=== PATIENT | male | born 1975 | race Caucasian/White ===

== ENCOUNTER 2018-05-01 10:52 | Outpatient (CLI) | payer OTHER, SELFPAY ==
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
== END 2018-05-01 11:12 ==
PROVIDERS: PCP Nurse Practitioner; Visit Provider Nurse Practitioner
DX: M25.561 Pain in right knee (principal)
CPT/HCPCS: 73562

== ENCOUNTER 2020-01-21 11:12 | Outpatient (CLI) | payer OTHER, SELFPAY ==
--- NOTE | 2020-01-21 08:00 | DI.RAD_ITS ---
EXAM: XR CLAVICLE RT CLINICAL HISTORY: right shoulder injury TECHNIQUE: 2D digital imaging was performed. COMPARISON: No exams were available for comparison FINDINGS: BONES: No acute fracture is present. No bony destructive lesion is seen. JOINTS: There is widening of the AC joint as well as widening of the coracoclavicular distance. The glenohumeral joint appears grossly intact. SOFT TISSUE: Soft tissue swelling is seen above the AC joint. IMPRESSION: Acromioclavicular joint separation. DATA REPOSITORY: RADIATION DOSE DELIVERED:
== END 2020-01-21 11:32 ==
PROVIDERS: PCP Nurse Practitioner; Visit Provider Student in an Organized Health Care Education/Training Program
DX: S49.91XA Unspecified injury of right shoulder and upper arm, initial encounter (principal); S43.101A Unspecified dislocation of right acromioclavicular joint, initial encounter
CPT/HCPCS: 73000

== ENCOUNTER 2020-02-16 07:30 | Outpatient (CLI) | payer OTHER, SELFPAY ==
[2020-02-17 21:08] LABS: COVID-19 RT-PCR Result NEGATIVE (Negative)
== END 2020-02-16 07:50 ==
PROVIDERS: PCP Nurse Practitioner; Visit Provider Nurse Practitioner Family
DX: Z11.59 Encounter for screening for other viral diseases (principal)
CPT/HCPCS: U0003

== ENCOUNTER 2020-03-02 15:21 | Outpatient (CLI) | payer OTHER, SELFPAY ==
--- NOTE | 2020-03-02 15:00 | DI.RAD_ITS ---
EXAM: XR KNEE RT 3V AP,LAT,ANNEMARIE CLINICAL HISTORY: right knee pain. TECHNIQUE: 2D digital imaging was performed. COMPARISON: No exams were available for comparison FINDINGS: BONES: No acute fracture is present. No bony destructive lesion is seen. JOINTS: The knee is normally aligned. No joint effusion is seen. SOFT TISSUE: Normal. IMPRESSION: Unremarkable radiographs of the right knee. DATA REPOSITORY: RADIATION DOSE DELIVERED:
--- NOTE | 2020-03-02 15:15 | DI.RAD_ITS ---
EXAM: XR ACROMIO CLAVICULAR JOINTS CLINICAL HISTORY: f/u TECHNIQUE: 2D digital imaging was performed. COMPARISON: CR XR CLAVICLE RT from 01/21/2020 FINDINGS: An upright non weight-bearing view was performed including both clavicles. There has been a previou s resection the distal end of the left clavicle. There is mild widening of the AC joint widening of the coracoclavicular distance on the right. IMPRESSION: Postsurgical changes of the left clavicle. Acromioclavicular joint separation on the right, unchang ed.
== END 2020-03-02 15:41 ==
PROVIDERS: PCP Nurse Practitioner; Referring Provider Nurse Practitioner; Visit Provider Student in an Organized Health Care Education/Training Program
DX: S43.101A Unspecified dislocation of right acromioclavicular joint, initial encounter (principal); Z98.890 Other specified postprocedural states; M25.561 Pain in right knee
CPT/HCPCS: 73562; 73050

== ENCOUNTER 2020-04-14 15:27 | Outpatient (CLI) | payer OTHER, SELFPAY ==
--- NOTE | 2020-04-14 14:45 | DI.RAD_ITS ---
EXAM: XR KNEE LT 3V AP,LAT,ANNEMARIE CLINICAL HISTORY: L knee injury. TECHNIQUE: 2D digital imaging was performed. COMPARISON: CR XR KNEE RT 3V AP,LAT,ANNEMARIE from 03/02/2020 FINDINGS: BONES: No acute fracture is present. No bony destructive lesion is seen. JOINTS: The knee is normally aligned. A joint effusion is seen. SOFT TISSUE: There is swelling anterior to the patella. IMPRESSION: Soft tissue swelling and joint effusion. DATA REPOSITORY: RADIATION DOSE DELIVERED:
== END 2020-04-14 15:47 ==
PROVIDERS: PCP Nurse Practitioner; Referring Provider Nurse Practitioner; Visit Provider Physician Assistant
DX: M25.462 Effusion, left knee (principal); S89.92XA Unspecified injury of left lower leg, initial encounter; M79.89 Other specified soft tissue disorders
CPT/HCPCS: 73562

== ENCOUNTER 2020-04-22 01:08 | Outpatient (CLI) | payer OTHER, SELFPAY ==
--- NOTE | 2020-04-22 06:45 | DI.MRI_ITS ---
EXAM: MR LOWER JOINT LT WO CLINICAL HISTORY: MCL ACL rupture,INTERNAL DERANGEMENT,SPRAIN,M23.92,S83.412A. TECHNIQUE: Multiplanar multisequence MRI was performed. COMPARISON: No exams were available for comparison FINDINGS: MR examination of the left knee was performed according to the usual protocol. Bones: There are large areas of marrow signal abnormality involving the lateral femoral condyle and l ateral tibial plateau. Findings are consistent with recent injury and are consistent with mechanism of injury of ACL and medial meniscal tears. Medial tibiofemoral joint: Articular cartilage appears well maintained. There is a predominantly hor izontal medial meniscal tear which is nondisplaced and which appears to surface inferiorly. There is grade 2 MCL injury. There is abnormal signal of the semimembranosus and semitendinosus and gracilis tendons distally without definite rupture or retraction. Lateral tibiofemoral joint: Unremarkable appearance of the articular cartilage. No meniscal tear or attachment tear. No significant lateral collateral ligament or posterolateral corner injury. Patellofemoral joint and extensor mechanism: There is minimally abnormal signal of the inferior pole of the patella. Articular cartilage of the patellar apex shows abnormal signal and mild surface irre gularity consistent with grade II defect. The patellar retinacula appear intact. The quadriceps and patellar tendons appear intact. No significant signal abnormality in suprapatellar or infrapatellar fat pads. Cruciate ligaments: There is a complete tear of the ACL approximately 1 cm from its femoral attachmen t. Posterior cruciate ligament appears intact. IMPRESSION: ACL tear and medial meniscal tear with associated grade 2 medial collateral ligament tear. Additional findings as described above. DATA REPOSITORY:
== END 2020-04-22 01:28 ==
PROVIDERS: PCP Nurse Practitioner; Visit Provider Student in an Organized Health Care Education/Training Program
DX: S83.32XA Tear of articular cartilage of left knee, current, initial encounter (principal); S83.242A Other tear of medial meniscus, current injury, left knee, initial encounter; M23.92 Unspecified internal derangement of left knee
CPT/HCPCS: 73721

== ENCOUNTER 2020-06-21 02:19 | Outpatient (CLI) | payer OTHER, SELFPAY ==
[2020-06-22 23:24] LABS: COVID-19 RT-PCR Result NEGATIVE (Negative)
== END 2020-06-21 02:39 ==
PROVIDERS: PCP Nurse Practitioner; Visit Provider Student in an Organized Health Care Education/Training Program
DX: Z11.59 Encounter for screening for other viral diseases (principal); Z01.818 Encounter for other preprocedural examination
CPT/HCPCS: U0003

== ENCOUNTER 2020-06-24 09:26 | Day surgery (SDC) | payer OTHER, SELFPAY ==
[2020-06-24 09:37] VITALS: BP 141/85; PULSE 57; RESP 16; TEMP 36.1; O2SAT 100
[2020-06-24] MEDS: Lactated Ringers 1,000 ML 100 ML IV (09:57)
[2020-06-24] MEDS: Acetaminophen 500 MG TAB 1000 MG PO (10:02)
[2020-06-24] MEDS: ceFAZolin 2 GM/50 ML BAG IVPB (11:16)
[2020-06-24] MEDS: Bupivacaine 0.25% Pres-Free 30 ML VIAL (12:45)
[2020-06-24] MEDS: EPINEPHrine 30 MG/30 ML VIAL (12:46)
[2020-06-24] MEDS: EPINEPHrine 1 MG/ML AMP pres-free (12:46)
--- NOTE | 2020-06-24 15:00 | DI.RAD_ITS ---
EXAM: XR KNEE LT 1V CLINICAL HISTORY: ACL TEAR. TECHNIQUE: 2D and realtime digital imaging was performed. COMPARISON: CR XR KNEE LT 3V AP,LAT,ANNEMARIE from 04/14/2020 FINDINGS: Fluoroscopy was provided for Dr. Amezquita in the OR. Please see procedure note for details. Fluoro time: 7.0 seconds RADIATION DOSE DELIVERED:
[2020-06-24 16:04] VITALS: BP 110/67; PULSE 59; RESP 12; O2SAT 99
--- NOTE | 2020-06-24 16:04 | W.PM.DSUDISC ---
Discharge Plan Disposition Patient Disposition: HOME Condition: Stable Discharge Details Reason For Visit: Left knee surgery Attending Provider: Aaron Amezquita Primary Care Provider: Shanice Stout Home Meds and New Rx's Prescriptions: New naproxen 250 mg tablet 250 - 500 mg PO BID PRN (Reason: Moderate pain or swelling) Qty: 60 RF: 0 aspirin 81 mg tablet,delayed release (DR/EC) 81 mg PO DAILY 30 Days Qty: 30 RF: 0 ondansetron 4 mg tablet,disintegrating 4 mg PO Q6H PRN (Reason: nausea or vomiting) Qty: 5 RF: 0 oxycodone 5 mg tablet 5 - 10 mg PO Q4H PRN (Reason: moderate to severe pain) Qty: 22 RF: 0 oxycodone 5 mg tablet 5 - 10 mg PO Q4H PRN (Reason: moderate to severe pain) Qty: 22 RF: 0 Discharge Instructions Additional Instructions: Surgery: Left knee ACL repair, superficial and deep MCL repair, lateral meniscus repair, and partial medial meniscectomy Activity: Weightbearing as tolerated with brace locked in full extension. Use at all times when ambulatory. May remove or loosen brace when seated or resting. Brace is locked in full extension (0 degrees). Brace will be unlocked after the first postoperative visit to allow for range of motion exercises. A physical therapy prescription will be sent electronically to start in 2 to 3 weeks. Prescriptions: Aspirin 81 mg take 1 daily to prevent a blood clot 30 days Naproxen 250 mg take 1-2 every 12 hours with a meal as needed for moderate pain Oxycodone 5 mg take 1-2 every 4-6 hours as needed for severe pain You may use ujot-gqe-iykiecd Tylenol (acetaminophen) as needed for mild pain. These pain medications may be taken all at once or in different combinations as needed. Also, recommend Colace (docusate) as a stool softener as surgery and pain medicine cause constipation. Dressings: Leave splint and dressing in place until follow-up. Keep clean and dry at all times. Follow-up: 10-[address] Amezquita Let us know right away if you develop any redness, drainage, fevers, chest pain, or trouble breathing. Do not drink alcohol or drive for at least 24 hours after anesthesia. Please call the office during business hours with any questions or concerns. Referrals: Aaron Amezquita MD [ [id number] STAFF PHYSICIAN] - Discharge Orders Discharge Orders: Discharge Order (Routine); Ordered 06/24/20 Ordered By: Aaron Amezquita DS: Diagnosis Discharge Diagnosis (1) MCL sprain of left knee: Status: Acute (2) Left ACL tear: Status: Acute (3) Acute medial meniscus tear of left knee: Status: Acute
[2020-06-24 16:09] VITALS: BP 94/56; PULSE 74; RESP 12; O2SAT 99
[2020-06-24 16:14] VITALS: BP 100/57; PULSE 59; RESP 18; TEMP 36.3; O2SAT 99
--- NOTE | 2020-06-24 16:32 | W.PM.OP ---
Date of service: 06/24/20 Time of Service: 16:04 Operative Note Operative Note DATE OF PROCEDURE: 06/24/20 PRE-OP DIAGNOSIS: Left knee 1. ACL proximal avulsion 2. Distal MCL tear 3. Superficial MCL disruption 4. Medial meniscus tear POST-OP DIAGNOSIS: same Left knee 1. ACL proximal avulsion 2. Distal MCL tear 3. Superficial MCL disruption 4. Medial meniscus tear 5. Lateral meniscus tear PROCEDURE: Left knee 1. Arthroscopic ACL repair, CPT# 26432 2. Superficial and deep MCL repair, CPT# 54789 3. Lateral meniscus repair, CPT# 48317 4. Partial medial meniscectomy, CPT# 59215 SURGEON: Aaron Amezquita ASSISTING SURGEON: Loco Mello NON LINEAR EDITOR: Lianne Sandoval ANESTHESIA: GETA, regional and local ESTIMATED BLOOD LOSS: 15 PATHOLOGY: none sent TOURNIQUET TIME: 0 COMPLICATIONS: None Patient was transported to: PACU Patient's condition: stable Implants: Arthrex 4.75 SwiveLock anchors x2 Mitek Truespan meniscal repair x3 Indications: Please see complete medical record for details. Findings: Full range of motion. Unstable Swathi and anterior drawer. Negative pivot shift. No anterior medial rotatory instability. Medial joint laxity in extension and 30 degrees of flexion gapping about 6-8 mm. Proximal ACL avulsion. Horizontal posterior horn lateral meniscus tear. Chronic horizontal posterior horn medial meniscus tear. Deep MCL avulsion from tibia. Superficial MCL retracted and scarred about pes anserinus. Procedure Description: In the operating room, general anesthesia was induced. The patient was positioned supine on the operating room table. All bony prominences were well-padded. Preoperative antibiotics were administered. The left knee was prepped and draped in the usual sterile fashion. The correct patient, procedure, and side of the procedure were all verified prior to incision. Anteromedial, anterolateral, and medial incision sites were preinjected with 0.25% bupivacaine containing epinephrine. Exam under anesthesia was performed findings documented above confirming high-grade ACL and MCL injuries. Diagnostic arthroscopy was performed establishing standard anteromedial anterolateral portals. Cartilaginous surfaces were intact patellofemoral medial lateral compartments. There were no loose bodies. ACL had a complete proximal avulsion with good quality tissue in place scarred to the PCL. Lateral meniscus posterior horn had a 16mm horizontal meniscus tear that appeared acute. Free edges were shaved off the white zone. The tear was probed and felt to progress significantly to the capsule. Shaver and rasp were introduced to improve tissue for healing. An all inside technique using the [employer] device was used to place 3 evenly spaced vertical mattress sutures spanning the horizontal tear. Each was secured and tied appropriately. The meniscus horizontal cleavage component was well fixed and stable. Next, attention was turned back to the notch where limited notchplasty was performed. Elevators were used to free the ACL remnant from the PCL. It was tested and found to have excellent excursion and reduction to the lateral wall anatomic footprint. Back in the medial compartment positive drive-through sign was confirmed of the medial meniscus body elevating off the proximal tibia. There is a degenerative appearing posterior horn horizontal medial meniscus tear with mucoid tissue and white zone fraying. Medial longitudinal approach centered over the proximal medial tibial from the joint line about 6 cm distally was used to approach the pes tendons, which were carefully retracted exposing a scarred and shorten superficial MCL tendon. It was carefully identified anteriorly and posteriorly and elevated off the proximal tibia and freed of adhesions superficially and deep using elevators. The tissue was confirmed to originate from the medial epicondyle. Suture tape was used to whipstitch this tendon in a Krak?w locking fashion. The knee was positioned in about 30 degrees of flexion with moderate varus in neutral rotation and the suture tapes were secured to a slightly posterior midline swivel lock anchor just distal to the pes. The double loaded #2 FiberWire from the suture anchor were then passed in an inverted horizontal mattress just anteriorly and posteriorly to each Krak?w edge at this horseshoe of elevated mobilized tissue achieving more fixation anteriorly posteriorly and a ripstop fashion. Valgus stress was applied to the knee confirming excellent reduction of the medial joint space gapping. Additional suture tape was used to bring tissue about the scarred site just proximal to the pes from posterior to anterior reducing any posterior medial MCL/KAELA laxity. The arthroscope was brought back into the knee and attention to the medial compartment. There was a reduced but still positive drive-through sign of the medial meniscus of the proximal tibia although medial gapping was nearly physiologic under valgus stress. The posterior horn of the medial meniscus was degenerative appearing unlike the lateral meniscus tear. A probe expose the mucoid tissue centrally but the tear fortunately only involved the white zone. Meniscal biter and shaver used to remove the unstable superior and inferior leaflet margins until well contoured stable rim. The joint line was palpated and outside in technique was used to pass a 2-0 FiberWire in a horizontal mattress fashion the superior aspect of the meniscus. This was repeated more anteriorly. A free needle was used to bring each end of the suture pairs under the superficial MCL tissue about 15 mm distal joint line and tightened and tied in pairs under visualization with the knee in full extension. There was excellent reduction in the meniscus no longer elevated off the proximal tibia under stress or probing. The remaining suture ends were then tied together completing the superficial and deep MCL repairs. Attention was then turned to the notch, and a low anteromedial accessory portal was established under direct visualization with the knee in hyperflexion targeting the anatomic footprint of the ACL. Passport cannulas were inserted in this accessory medial portal as well as anterolateral portals. The camera was brought into the original anteromedial portal. Using a suture retriever a suture tape was passed in an alternating fashion from medial to lateral each end across the ACL from the intact tibial insertion to the end of the proximal stump ending each suture tape towards the lateral wall with about 3-4 passes of each suture. Appropriate excursion and reduction in traction on the ACL was confirmed. The suture tapes were brought out the low anteromedial portal. A punch was used to establish site for the suture anchor which was provisionally placed with appropriate suture tension. When the suture anchor was brought down, the ACL tissue did not quite reach this location. The camera was brought anteromedial anterior laterally and this punch location was felt to be too high in the notch. The anchor was removed in entirety. The punch was then redirected to a more anatomic location lower and centrally. Suture anchor was loaded again, the tissue appropriately tensioned, and secured to the lateral footprint. The repair was inspected under direct visualization and felt to well approximate the majority of the ACL tissue although somewhat low well-positioned between the posterior lateral anterolateral bundle footprint on the femur. The probe was used to confirm secure ACL tissue against the lateral wall with no separation. The knee was examined anterior drawer Swathi felt to be excellently stable. In full extension there was no impinge on the notch. The free suture was removed and the repair stitch was cut flush. The lateral meniscus repair was examined one more time remained very stable and secure. The knee was drained of arthroscopic fluid. The open wound was copiously irrigated with normal saline. The portals were closed using 3-0 Monocryl in a buried interrupted fashion. The sartorius fascia was closed with 0 Vicryl in a eufajp-bj-wmaos fashion. Subcutaneous tissues closed using 2-0 Monocryl in a buried interrupted fashion. The skin was closed in 3-0 Monocryl in a running subcuticular fashion. Mastisol applied about the incision and portals, which were covered with Steri-Strips, Xeroform, and dry 4 x 4 gauze and ABD pads. Sterile soft roll was applied about the knee followed by an Rod wrap from the foot up to the thigh. The knee was then placed in a hinged knee brace fit for the patient and locked in full extension. The patient awoke from anesthesia without complication and was transferred to the recovery room in a stable condition.
[2020-06-24 16:55] VITALS: BP 120/75; PULSE 59; RESP 16; TEMP 36.3; O2SAT 98
== END 2020-06-24 17:30 | disposition home or self-care (01) ==
PROVIDERS: PCP Nurse Practitioner; Visit Provider Student in an Organized Health Care Education/Training Program
PROC: (CPT 29888; principal; 2020-06-24 11:00)
DX: S83.412A Sprain of medial collateral ligament of left knee, initial encounter (principal); S83.512A Sprain of anterior cruciate ligament of left knee, initial encounter; S83.242A Other tear of medial meniscus, current injury, left knee, initial encounter; S83.282A Other tear of lateral meniscus, current injury, left knee, initial encounter; G89.18 Other acute postprocedural pain; V17.0XXA Pedal cycle driver injured in collision with fixed or stationary object in nontraffic accident, initial encounter; Y93.55 Activity, bike riding
CPT/HCPCS: 29888; 27405; 29882; 29881; C1713; 76942; 73560; E0114; J0171; J0690; J1100; J1885; J2001; J2250; J2405; J2704; J3475; L8699

== ENCOUNTER 2020-09-30 09:38 | Outpatient (CLI) | payer OTHER, SELFPAY ==
[2020-10-01 01:54] LABS: COVID-19 RT-PCR UVMMC Result Negative (Negative)
== END 2020-09-30 09:39 | disposition home or self-care (01) ==
PROVIDERS: PCP Nurse Practitioner; Visit Provider Nurse Practitioner Family
DX: Z20.822 Contact with and (suspected) exposure to COVID-19 (principal)
CPT/HCPCS: U0003

== ENCOUNTER 2021-03-09 02:28 | Outpatient (CLI) | payer OTHER, SELFPAY ==
[2021-03-09 19:55] LABS: COVID-19 RT-PCR UVMMC Result Negative (Negative)
== END 2021-03-09 02:29 | disposition home or self-care (01) ==
LOC: LBO 02:29
PROVIDERS: PCP Nurse Practitioner; Visit Provider Nurse Practitioner Family
DX: Z20.822 Contact with and (suspected) exposure to COVID-19 (principal)
CPT/HCPCS: U0003

== ENCOUNTER 2021-07-26 07:34 | Outpatient (CLI) | payer OTHER, SELFPAY | END 2021-07-26 07:35 | disposition home or self-care (01) | LOC: LBO 07:35 | PROVIDERS: PCP Nurse Practitioner; Visit Provider Nurse Practitioner Family ==

== ENCOUNTER 2021-07-27 03:03 | Outpatient (CLI) | payer OTHER, SELFPAY ==
[2021-07-28 10:06] LABS: COVID-19 RT-PCR UVMMC Result Negative (Negative)
== END 2021-07-27 03:04 | disposition home or self-care (01) ==
LOC: LBO 03:03
PROVIDERS: PCP Nurse Practitioner; Visit Provider Nurse Practitioner Family
DX: Z20.822 Contact with and (suspected) exposure to COVID-19 (principal)
CPT/HCPCS: U0003

== ENCOUNTER 2021-10-25 08:45 | Outpatient (CLI) | payer OTHER, SELFPAY ==
--- NOTE | 2021-10-25 08:00 | DI.RAD_ITS ---
Exam(s) XR KNEE LT 3V AP,LAT,ANNEMARIE EXAM: XR KNEE LT 3V AP,LAT,ANNEMARIE CLINICAL HISTORY: left knee pain. TECHNIQUE: 2D digital imaging was performed of the left knee. Three images were obtained. AP, late ral, and Merchant views were obtained. COMPARISON: CR XR KNEE LT 3V AP,LAT,ANNEMARIE from 04/14/2020 RF XR KNEE LT 1V from 06/24/2020 FINDINGS: BONES: No acute fracture is present. There is a new lucency seen in the medial aspect of the proxima l metaphysis of the left tibia. This may be postsurgical. Please correlate clinically. No perioste al reaction or cortical destruction is seen. JOINTS: The knee is normally aligned. There is a small joint effusion. SOFT TISSUE: Normal. IMPRESSION: No acute fracture or dislocation. Please see the above discussion for complete details. DATA REPOSITORY: RADIATION DOSE DELIVERED:
== END 2021-10-25 08:46 | disposition home or self-care (01) ==
LOC: DIORS 08:46
PROVIDERS: PCP Nurse Practitioner; Referring Provider Nurse Practitioner; Visit Provider Physician Assistant
DX: M25.562 Pain in left knee; M25.462 Effusion, left knee; S83.8X2A Sprain of other specified parts of left knee, initial encounter
CPT/HCPCS: 73562

== ENCOUNTER 2023-01-02 15:53 | Outpatient (REF) | payer OTHER, SELFPAY ==
[2023-01-02 16:32] LABS: ALT 37 U/L (16-63); AST 29 U/L (15-37); Albumin 3.9 g/dL (3.4-5.0); Alkaline Phosphatase 89 U/L (46-116); Anion Gap 9.5 mmol/L (3-11); BUN 14 mg/dL (7-18); Bilirubin, Total 0.6 mg/dL (0.2-1.0); CO2 26.5 mmol/L (21.0-32.0); CREATININE 0.9 mg/dL (0.70-1.30); Calcium 9.3 mg/dL (8.5-10.1); Calculated LDL 107 mg/dL (<100); Chloride 105 mmol/L (98-107); Cholesterol 202 mg/dL (<200); Estimated GFR 106.67 (mL/min/1.73m2); Glucose 102 mg/dL (74-106); HDL Cholesterol 61 mg/dL (40-60); Potassium 4.1 mmol/L (3.5-5.1); Sodium 141 mmol/L (136-145); Total Protein 7.7 g/dL (6.4-8.2); Triglyceride 171 mg/dL (<150)
== END 2023-01-02 15:54 | disposition home or self-care (01) ==
LOC: NCHCN 15:53
PROVIDERS: PCP Nurse Practitioner Family; Visit Provider Nurse Practitioner Family
DX: Z00.00 Encounter for general adult medical examination without abnormal findings (principal)
CPT/HCPCS: 80053; 80061

== ENCOUNTER 2023-04-12 07:41 | Day surgery (SDC) | payer OTHER, SELFPAY ==
[2023-04-12 07:50] VITALS: BP 137/90; PULSE 71; RESP 20; TEMP 36; O2SAT 100
[2023-04-12] MEDS: Lactated Ringers 1,000 ML 80 ML IV (08:11)
--- NOTE | 2023-04-12 08:35 | W.ANESPRE ---
General Info Date of Service Date Performed: 04/12/23 Height: 5 ft 7 in Weight: 76.022 kg Body Mass Index (BMI): 26.2 Surgical Procedure: Operation Date: 04/12/23 10:50 Proposed Procedure Side Surgeon wanda Briggs MD Meds Allergies and Home Medications Allergies Allergy/AdvReac Type Severity Reaction Status Date / Time No Known Allergies Allergy Verified 04/11/23 14:37 Home Medication Medication Instructions Recorded Unknown [No Known Home Meds] 04/26/21 Current Visit Medications: Current Medications Generic Name Dose Route Start Last Admin Trade Name Freq PRN Reason Stop Dose Admin Ringer's Solution 1,000 mls @ 80 mls/hr 04/12/23 06:00 04/12/23 08:11 IV 04/12/23 23:59 80 mls/hr INFUSION TALHA Administration IV Miscellaneous Supplies 1 each 04/12/23 06:00 Iv Access IV 04/12/23 23:59 DIRECTED TALHA Sodium Chloride 0 ml 04/12/23 06:00 Normal Saline Flush 10 Ml Syr IV 04/12/23 23:59 PRN PRN Sodium Chloride 0 ml 04/12/23 06:00 Normal Saline 10 Ml Vial IJ 04/12/23 23:59 DIRECTED PRN Sterile Water 0 ml 04/12/23 06:00 Water,Injection,Sterile 10 Ml Vial IJ 04/12/23 23:59 DIRECTED PRN PFSH Active Problems Active Problems: Problem Status Onset Code Right knee injury S89.91XA Grade 3 separation of right shoulder 01/20/20 S43.084A Encounter for screening for other viral diseases Z11.59 Left ACL tear 04/04/20 S83.512A MCL sprain of left knee 04/04/20 S83.412A Acute medial meniscus tear of left knee 04/04/20 S83.242A Acute lateral meniscal injury of left knee S83.8X2A Lateral epicondylitis of right elbow M77.11 Medical History Medical History Contusion of thigh, left (04/04/20) Ear canal dryness Grade 2 sprain of medial collateral ligament of left knee (04/04/20) Internal derangement of left knee Internal derangement of right knee Skin lesion of face Surgical History Surgical History History of knee surgery Patient reports screws in left knee. Hx of arthroscopy of shoulder Left shoulder. Tobacco Smoking/Tobacco Use Status: Never Alcohol Alcohol Intake: current Alcohol intake frequency: 0-2 drinks per day Alcohol type: beer Substance Use Substance use: Occasionally Substance use type: marijuana Vital Signs and Lab Results Vital Signs Most Recent Vital Signs in EMR: Most Recent Vital Signs Temp Pulse Resp BP Pulse Ox 36.0 C L 71 20 137/90 100 04/12/23 07:50 04/12/23 07:50 04/12/23 07:50 04/12/23 07:50 04/12/23 07:50 Lab Results Blood Type / Crossmatch: No Data to Display Complete Blood Count: No Data to Display Complete Metabolic Panel: No Data to Display Liver Function Panel: No Data to Display Coagulation Panel: No Data to Display Cardiac Panel: No Data to Display Arterial Blood Gas: No Data to Display Venous Blood Gas: No Data to Display Pancreas Panel: No Data to Display Thyroid Panel: No Data to Display Infectious Disease: No Data to Display Blood Cultures: No Data to Display Toxicology Panel: No Data to Display Anesthesia Assessment and Plan Anesthesia History Personal History: No History of Anesthesia Complications Family History: No Family History of Anesthesia Complications Exercise Tolerance Exercise Tolerance: Metabolic Equivalents>4 Pertinent Negatives Pertinent Negatives: No Symptoms of GERD, No Major Cardiovascular Symptoms or Complaints, No Major Pulmonary Symptoms or Complaints and No History of CVA/TIA Cardiac & Pulmonary Exam Cardiac Exam: Normal S1/S2 Heart Sounds Pulmonary Exam: Clear Bilateral Breath Sounds Implantable Cardiac Device Does patient have a Pacemaker or an ICD?: No Airway Exam Known Difficult Airway: No Mallampati Class: 2 Mouth Opening: Normal (> 3cm) Thyromental Distance: Greater than 3 cm Neck Range of Motion: Full ROM Neck Circumference: Normal Teeth Condition: Normal Dentition ASA Classification ASA Score: ASA 2 Emergency Case?: No NPO Status NPO Status: NPO Clears >2 hours, Solids >8 hours Anesthesia Plan Resuscitation Status: Full Code Anesthesia Technique: General Anesthesia Airway Planned: Natural Airway Monitors Used: Standard Monitors
[2023-04-12 08:41] VITALS: BMI 26.2
[2023-04-12 09:03] VITALS: BP 165/66; PULSE 56; RESP 18; TEMP 36.8; O2SAT 98
--- NOTE | 2023-04-12 09:15 | W.COLOREPORT ---
Date of service: 04/12/23 Time of Service: 09:17 Colonoscopy Report Procedure Description: Procedures performed: 1. Colonoscopy Preoperative diagnosis: Screening colonoscopy Postoperative diagnosis: Normal Terminal ileum, Normal Colon, Normal rectum Surgeon: Lina Briggs Anesthesia: Dede Indication for procedure: 48-year-old man without any symptoms and no family history of colon cancer due for screening. Findings: Normal terminal ileum.? Normal Colon.? Normal Rectum. Benign?appearing taylor?anal skin tags. Surveillance/follow-up recommendations: 10 years Complications: None Blood loss: Minimal Prep: Excellent Specimens:? None Procedure in detail: Written consent was obtained from the patient who was in agreement with the risks, benefits and indications of the procedure.? We went to the endoscopy suite and laid the patient in left lateral decubitus position.? Anesthesia was administered which was tolerated well.? A timeout was performed and when we are all in agreement we began the procedure. Digital rectal exam and visual examination was performed. Two benign?appearing skin tags are present around the anus, likely secondary to prior hemorrhoid issues or fissure issues. A well?lubricated colonoscope was advanced without difficulty all the way to the cecum identified by the ileocecal valve, and triangular folds and appendiceal orifice.? Terminal ileum was intubated and appeared normal.? The scope was then slowly withdrawn.?? Retroflexion was performed in the rectum.? The findings/interventions are noted above. The scope was then removed and the patient tolerated the procedure well and was then taken back to the PACU in hemodynamically stable condition.
--- NOTE | 2023-04-12 09:17 | W.PM.DSUDISC ---
Date of service: 04/12/23 Time of Service: 09:17 Discharge Plan Disposition Patient Disposition: Home Condition: Good Discharge Details Attending Provider: Иван Briggs Primary Care Provider: LU ROSARIO Home Meds and New Rx's Prescriptions: No Action No Known Home Meds Discharge Instructions Stand Alone Forms: Anesthesia Discharge Inst., Jordan Bellinocente (DSU) Activity:: Activity as Tolerated Diet:: As Tolerated DS: Diagnosis Discharge Diagnosis (1) Colon cancer screening: Status: Acute Asessment and Plan: FINDINGS: Your small intestine, your colon and your rectum all appeared completely normal. There were no polyps. There is no inflammation. There is no diverticular disease. There is no significant hemorrhoid disease. Skin tags around the bottom/anal area are extremely common, benign, and are usually secondary to healing after hemorrhoid or fissure problems in the past. As long as you do not have any symptoms from these there is nothing you need to do about them.
--- NOTE | 2023-04-12 09:44 | W.ANESPOSTOP ---
Postoperative Evaluation Date, Time and Location Date Performed: 04/12/23 Time Performed: 09:46 Patient Location: Day Surgery Unit Vital Signs Most Recent Imported Vital Signs: Most Recent Vital Signs Temp Pulse Resp BP Pulse Ox 36.8 C 56 L 18 165/66 H 98 04/12/23 09:03 04/12/23 09:03 04/12/23 09:03 04/12/23 09:03 04/12/23 09:03 Pain Score Most Recent Pain Score: Most Recent Pain Score Pain Level 0 04/12/23 07:50 Assessment Mental Status: Awake (Alert & Oriented to Patient Baseline) Airway and Respiratory Function: Patent airway with normal (patient baseline) respiratory exam Cardiovascular Function: Hemodynamically Stable Hydration Status: Adequately Hydrated Nausea & Vomiting: No Nausea or Vomiting Pain: Pt. Denies Any Pain Peripheral Nerve Block: Patient did not receive a nerve block
[2023-04-12 09:47] VITALS: BP 110/65; PULSE 54; RESP 16; TEMP 36.4; O2SAT 95
== END 2023-04-12 10:20 | disposition home or self-care (01) ==
PROVIDERS: PCP Nurse Practitioner Family; Visit Provider Student in an Organized Health Care Education/Training Program
PROC: 0DJD8ZZ Inspection of Lower Intestinal Tract, Via Natural or Artificial Opening Endoscopic (ICD-10-PCS; CPT 45378; principal; 2023-04-12 10:45)
DX: Z12.11 Encounter for screening for malignant neoplasm of colon (principal)
CPT/HCPCS: 45378; J2001; J2250

== ENCOUNTER 2025-04-30 12:38 | Emergency (ER) | payer OTHER, SELFPAY ==
--- NOTE | 2025-04-30 12:49 | W.ED.GENAD ---
Discharge Plan Disposition Patient Disposition: Home Discharge Details Clinical Impression: Encounter for prophylactic administration of rabies immune globulin Primary Care Provider: LU ROSARIO ED Provider: Navarro Dela Cruz Home Meds and New Rx's Prescriptions: No Action No Known Home Meds Discharge Instructions Additional Instructions: You are seen in the emergency department for your concern for rabies. You received both the vaccine against rabies and immunoglobulin to prevent infection. You need to return to the infusion clinic 3 days from now, 7 days from now, and 14 days from now. This has been set up for you. As we discussed if you develop fevers nausea or vomiting or have any other concerns please return to the emergency department. Given that your next appointment is on a Sunday rather than go to the infusion clinic for this first appointment. He will be seen on the [facility] floor. Discharge Data Discharge Date/Time-TO BE ENTERED AT DEPARTURE: 04/30/25 14:20 HPI General Date/Time Provider Initiated Documentation: 04/30/25 12:40. HPI Narrative: MDM This is a quite well-appearing normothermic and not tachycardic 50-year-old male with low risk exposure to erratic acting mammal with unlikely but not impossible rabies risk for which patient will receive prophylactic immunoglobulin and rabies vaccine. No wounds to suggest benefit from primary closure nor prophylactic antibiotics nor tetanus immunization. No pain out proportion to suggest necrotizing soft tissue infection. Patient and I discussed the risks and the benefits of prophylactic treatment for rabies. I discussed that his exposure was quite low risk as he did not have any obvious large lacerations. He does work as a [employer] and so it is certainly possible that he had small superficial lacerations. There is also a theoretically possibility that given the rain and the bloody skunk which he handled with pieces of wood that he could have been exposed to a blood-borne illness from the animal that certainly seems to have been acting rabid. We also discussed that there is a risk in prophylactic vaccination and immunoglobulin. Risks include but are not limited to injection site infection or allergic reaction. Patient understood that there are risks associated with the injection but was more concerned about the possibility of rabies. We discussed that it was certainly not unreasonable to proceed with rabies vaccination. Patient received his immunoglobulin and initial dose of rabies vaccine in the emergency department. He will receive subsequent doses on days 3, 7, and 14 through the infusion center and the MedSurg unit on weekends. We discussed that he should return to the emergency department if he developed any fevers or had any other concerns. He understood his return indications and was discharged with an empiric trial of expectant outpatient management. HPI This is a patient presenting for evaluation of potential rabies exposure. Patient is a previously healthy 50-year-old male up-to-date with immunizations. Two days prior, the patient encountered a skunk exhibiting abnormal behavior, characterized by twitching and jerking movements. He subsequently shot the skunk in the head at close range. The patient cleaned up the animal by picking it up using shingles and his bare hands. Patient works as a [employer] and acknowledges the presence of minor cuts on his hands but is uncertain if any of these were open wounds at the time of the incident. It was also raining during the cleanup process and so there is concerns that some of the blood from the skunk could have theoretically mated into an open small wound of the patient's hand. He is concerned about the possibility of rabies and here for prophylaxis. Exam General: Well-appearing in no acute distress speaking in complete sentences. Head: Normocephalic, atraumatic. Eye: Extraocular eye movements intact. No conjunctival injection. No scleral icterus. Ear, nose, mouth, throat: Grossly normal inspection. Normal voice, handling secretions normally. Neck: Trachea midline. Cardiovascular: Well-perfused distal extremities. Respiratory: Nonlabored respiration. Gastrointestinal: Nondistended abdomen. Musculoskeletal: No edema. Moving all 4 extremities spontaneously. Skin: Normal for age and race, grossly normal temperature and turgor. No acute rash. Neurologic: Alert and appropriate, no apparent acute deficits. Psychiatric: Mood and manner are appropriate. Grooming and personal hygiene are appropriate. Related Data Home Medications ?Medication ?Instructions ?Recorded ?Confirmed Unknown [No Known Home Meds] 04/26/21 04/30/25 Allergies Allergy/AdvReac Type Severity Reaction Status Date / Time No Known Allergies Allergy Verified 04/30/25 12:55 PFSH All Active Problems (Updated 04/30/25 @ 13:31 by Navarro Dela Cruz MD) Encounter for prophylactic administration of rabies immune globulin (Acute) Colon cancer screening (Acute) Right knee injury (Acute) Grade 3 separation of right shoulder (Acute 01/20/20) Encounter for screening for other viral diseases (Acute) Left ACL tear (Acute 04/04/20) MCL sprain of left knee (Acute 04/04/20) Acute medial meniscus tear of left knee (Acute 04/04/20) Acute lateral meniscal injury of left knee (Acute) Lateral epicondylitis of right elbow (Acute) Medical History (Updated 04/30/25 @ 13:31 by Navarro Dela Cruz MD) Skin lesion of face Ear canal dryness Internal derangement of left knee Contusion of thigh, left (04/04/20) Grade 2 sprain of medial collateral ligament of left knee (04/04/20) Internal derangement of right knee Surgical History (Updated 04/13/23 @ 09:41 by [place] Shah) History of colonoscopy (~03/2023) History of knee surgery Patient reports screws in left knee. Hx of arthroscopy of shoulder Left shoulder. Social History Smoking/Tobacco Use Status: Never Smoking risk assessment performed?: Yes Alcohol Intake: current Alcohol Intake frequency: 0-2 drinks per day Alcohol type: beer Drug use: Occasionally Substance use type: marijuana Housing: house Current gender identity: male Do you feel safe at home: Yes Do you feel safe in your relationship?: Yes
[2025-04-30 12:53] VITALS: BP 136/90; PULSE 55; RESP 16; O2SAT 100
[2025-04-30 13:12] VITALS: TEMP 36.4
--- NOTE | 2025-04-30 13:33 | NUR.NOTE ---
Faxed to Infusion rabies vaccine order: May 03, , and . Patient given a copy of this also. Nursing Note:
[2025-04-30] MEDS: Rabies vaccine (PCEC)/PF 2.5 UNITS/ML VIAL IM (13:54)
[2025-04-30] MEDS: Rabies Immune Globulin 1,500 UNIT/5 ML VIAL 1500 UNITS IM (13:54)
== END 2025-04-30 14:20 | disposition home or self-care (01) ==
PROVIDERS: Emergency Provider Emergency Medicine; PCP Nurse Practitioner Family
DX: Z20.3 Contact with and (suspected) exposure to rabies (principal)
CPT/HCPCS: 99284; 99283; 90471; 96372; 90375; 90675

== ENCOUNTER 2025-05-14 00:03 | Outpatient (RCR) | payer OTHER, SELFPAY ==
[2025-05-03] MEDS: Rabies vaccine (PCEC)/PF 2.5 UNITS/ML VIAL IM (13:02)
[2025-05-07] MEDS: Rabies vaccine (PCEC)/PF 2.5 UNITS/ML VIAL IM (12:10)
[2025-05-14] MEDS: Rabies vaccine (PCEC)/PF 2.5 UNITS/ML VIAL IM (13:06)
== END 2025-05-15 23:59 | disposition home or self-care (01) ==
LOC: INF 00:03
PROVIDERS: PCP Nurse Practitioner Family; Visit Provider Emergency Medicine
DX: Z29.14 Encounter for prophylactic rabies immune globulin (principal); Z20.3 Contact with and (suspected) exposure to rabies
CPT/HCPCS: 90471; 96372; 90675